=== PATIENT | male | born 1980 | race Two or more races ===

== ENCOUNTER 2022-10-13 15:49 | Emergency (ER) | payer OTHER, SELFPAY | END 2022-10-13 18:53 | disposition left against medical advice (07) | PROVIDERS: Emergency Provider Emergency Medicine | DX: Z04.1 Encounter for examination and observation following transport accident (principal) ==

== ENCOUNTER 2024-12-03 22:24 | Emergency (ER) | payer OTHER, SELFPAY ==
--- NOTE | ~2024-12-03 | XR_ITS ---
CLINICAL HISTORY: laceration palm from glass, ?FB 3 view left hand Comparison: None Findings: Multifocal osteoarthritis, including imaged wrist. Likely accessory ossicle of the base of the 1st proximal phalanx. No dislocation. Calcific densities likely due to small old avulsion fragment of the ventral aspect of the base of the distal phalanx of the thumb. Soft tissue swelling and defect in the 1st webspace with soft tissue swelling, including thenar region. No radiopaque retained foreign body in the [id number]. IMPRESSION: 1. Soft tissue defect including 1st webspace. 2. Soft tissue swelling including thenar region. 3. Multifocal osteoarthritis, including imaged wrist. This document has been electronically signed by: Omkar Padron MD on 12/04/2024 02:04:11
[2024-12-03 23:12] VITALS: BP 159/109; PULSE 90; RESP 18; TEMP 36.8; O2SAT 97; BMI 30.7
--- OUTSIDE RECORDS SUMMARY | 2024-12-04 01:03 | XMS_ITS | Clinical Summary ---
Author Organization [facility] Address [address] [place] [address] Care Team Providers Care Building Certifier Name Role Phone Sapphire Del Angel PA-C Primary Care Provider [phone] Source Comments PLEASE NOTE, if this patient is a minor, it may be UNLAWFUL to discuss sensitive information that is contained in these records (such as FAMILY PLANNING, MENTAL HEALTH or SUBSTANCE ABUSE) with the minor patient's parent or other person without the patient's specific authorization.[facility] Allergies No known active allergies Medications miscellaneous medical supply miscIndications:Lo calized swelling of both lower legs by miscellaneous route once daily DX: bilateral leg swelling Length of need: lifetime Supply: 1 pair of 15-20 mm Hg compression stockings 2 Each 05/27/20 21 Active blood-glucose meter (FREESTYLE LITE METER) monitoring kitIndications:New onset type 2 diabetes mellitus (HCC-CMS) as needed for blood glucose monitoring 1 Each 07/02/20 21 Active lancets (FREESTYLE LANCETS) 28 gaugeIndications:N ew onset type 2 diabetes mellitus (HCC-CMS) Daily to test BG 100 Each 07/02/20 21 Active blood sugar diagnostic (FREESTYLE TEST) stripsIndications: New onset type 2 diabetes mellitus (HCC-CMS) 1 Each once daily 100 Each 2 07/02/20 21 Active fluticasone propionate (FLOVENT HFA) 110 mcg/actuation inhalerIndications :Wheezing Inhale 1 Puff into the lungs 2 (two) times daily 12 g 2 11/05/19 22 Active albuterol sulfate 90 mcg/actuation inhalerIndications :Dyspnea on exertion Inhale 2 Puffs into the lungs every 4 (four) hours as needed for shortness of breath or wheezing 18 g 2 11/05/19 22 Active hydroCHLOROthiazid e (HYDRODIURIL) 25 mg tabletIndications: Essential hypertension Take 1 Tablet by mouth once daily 90 Tablet 1 02/24/20 22 Active testosterone (ANDROGEL) 1 % (50 mg/5 gram) gelIndications:Hyp ogonadism in male Place 50 mg onto the skin once daily 5 g 02/24/20 22 Active lisinopriL 20 mg tabletIndications: Essential hypertension Take 1 Tablet by mouth once daily for blood pressure 90 Tablet 1 02/24/20 22 Active metFORMIN (GLUCOPHAGE) 1,000 mg tabletIndications: Controlled type 2 diabetes mellitus without complication, without long-term current use of insulin ([facility]) Take 1 Tablet by mouth 2 (two) times daily with a meal 60 Tablet 2 02/24/20 22 Active atorvastatin (LIPITOR) 20 mg tabletIndications: Mixed hyperlipidemia Take 1 Tablet by mouth once daily 90 Tablet 02/24/20 22 Active Active Problems Problem Noted Date Diagnosed Date Rib fracture 03/16/2018 Overview (03/16/2018): [facility] Diagnostic Imaging Department 03/13/2018 Right 10th and 11th rib fractures. No radiologically evident pneumothorax. Umbilical hernia 03/12/2017 Hx of drug abuse ([facility]) 10/27/2016 Overview (10/27/2016): Currently on suboxone daily. [facility]es to [facility]. Sees a therapist as well. Deviated nasal septum 10/27/2016 Essential hypertension 12/19/2015 Hypercholesteremia 12/19/2015 Low back pain 12/19/2015 Morbid obesity due to excess calories ([facility]) 12/19/2015 Resolved Problems Problem Noted Date Diagnosed Date Resolved Date Bilateral leg numbness 12/19/201510/27 Encounters Date Type Department Care Team Description 09/11/2024 Telemedicine Visit [address] [address] [place] Alcaraz PA Bilateral inguinal hernia without obstruction or gangrene, recurrence not specified (Primary Dx) from Last 3 Months Immunizations Name Administration Dates Next Due INFLUENZA, SEASONAL, INJECTA BLE, PRESERVATIVE FREE 10/27/2016 PFIZER COVID VACCINE, PURPLE CAP, 12+ ,01/17/2021,12/27/2020,2020 TDAP 02/05/2016 Family History Relation Name Status Comments Father Alive Mother Alive Social History Tobacco Use Types Packs/Day Years Used Date Smoking Tobacco: Never Smokeless Tobacco: Never Tobacco Cessation:Counseling Given: No Alcohol Use Standard Drinks/Week Comments Yes 0 (1 standard drink = 0.6 oz pur e alcohol) occassionaly Social Connections Answer Date Recorded Connectedness 0 11/05/2021 Financial Resource Strain Answer Date R ecorded Financial Resource Strain 0 2021 Stress Answer Date Recorded Stress 0 11/05/2021 Physical Activity Answer Date Recorded Physical Activity 0 06/24/2019 Food Insecurity Answer Date Recorded Food 0 11/05/2021 Transportation Needs Answer Date Record ed Transportation 0 11/05/2021 Housing Stability Answer Date Recorded Housing 0 11/05/2021 Safety and Environment Answer Date Robert rded Safety 0 11/05/2021 Utilities Answer Date Recorded Utilities 0 11/05/2021 Employment Answer Date Recorded Employment 0 06/24/2019 Sex and Gender Information Value Date Recorded Sex Assigned at Male 02/15/2019 1:27 PM PDT Legal Sex Male 1:23 PM PST Gender Identity Male 02/15/2019 1:27 PM PDT Sexual Orientation Straight 02/15/2019 1: 27 PM PDT Occupation Industry Job Start Date Job End Date Not on file Not on file Not on file Not on file Last Filed Vital Signs Vital Sign Reading Time Taken Comments Blood Pressure 181/160 02/23/2022 3:39 PM EDT Pulse 104 02/23/2022 3:39 PM EDT Temperature 36.3 ??C (97.3 ??F) 02/23/2022 3:39 PM ED T Respiratory Rate 16 02/23/2022 3:39 PM EDT Oxygen Saturation 97% 05/27/2021 3:30 PM EDT Inhaled Oxygen Concentration - - Weight 117.5 kg (259 lb) 02/23/2022 3:39 PM EDT Height 167.6 cm (5' 6 ) 11/19/2021 3:23 PM EST Body Mass Index 41.8 11/19/2021 3:23 PM EST Plan of Treatment Health Maintenance Due Date Last Done Comments Dental Examination 1979 Tobacco Screening 1979 Syphilis Screening 02/07/1993 Imm-Hepatitis B (1 of 3 - 19 + 3-dose series) 1998 Annual Preventive Care Visit 02/04/2017 02/05/2016 Lipid Screening 02/23/2023 02/23/2022, 01/30, 11/05/2021, Additional history exists CT Colonography 02/07/2024 Colonoscopy 02/07/2024 Colorectal Cancer Screening 02/07/2024 FIT/gFOBT 02/07/2024 Fecal DNA 02/07/2024 Flexible Sigmoidoscopy 02/07/2024 [id number] () 07/01/2024 01/17/2021, 01/17/2021, 12/27/2020, Additional history exists Imm-Influenza (#1) 2024 10/27/2016 Alcohol and Drug Screen 10/31/2024 11/05/19, 04/10/2021, 02/13/2019, Additional history exists Depression Annual Screen 10/31/2024 11/05/2021, 12/01 Diabetes Screening 02/23/2025 02/23/2022, 0 02/23/2022, 11/05/2021, Additional history exists Imm-DTaP/Tdap/Td (2 - Td or Tdap) 02/04/2026 016 HIV Screening Completed 05/29/2021, 05/29/2021 Hepatitis C Screening Completed 05/29/2021 Goals Goal Patient Goal Type Associated Problems Recent Progress Patient-Stated? Author Blood Pressure < 140/90 Blood Pressure Essential hypertension 181/160(02/23 3:39 PM EDT) No Clemente Cheney, PharmD Procedures Procedure Name Priority Date/Time Associated Diagnosis Comments COMPREHENSIVE METABOLIC PANEL Routine 02/23/2022 4:14 PM EDT Essential hypertension LIPID PANEL Routine 02/23/2022 4:14 PM EDT Mixed hyperlipidemia HIV 1/2 AG & AB W/RFLX (4TH GEN) Routine 05/29/2021 9:38 AM EDT Encounter for screening for HIV ACUTE HEPATITIS PANEL W/RFLX Routine 05/29/2021 9:38 AM EDT Need for hepatitis C screening test from Last 3 Months or Most Recently Relevant to Health Maintenance Results * (ABNORMAL) LIPID PANEL (02/23/2022 4:14 PM EDT) CHOLESTEROL, TOTAL 196 <200 mg/dL [facility] HDL CHOLESTEROL 45 > OR = 40 mg/dL [facility] TRIGLYCERIDES 137 <150 mg/dL [facility] LDL-CHOLESTEROL 126(H) 99 mg/dL (calc) [facility] Comment: Reference range: <100 Desirable range <100 mg/dL for primary prevention; ?? <70 mg/dL for patients with CHD or diabetic patients with > or = 2 CHD risk factors. LDL-C is now calculated using the Alonso calculation, which is a validated novel method providing better accuracy than the Friedewald equation in the estimation of LDL-C. Bill FRANKEL et al. LARRY. 2013;310(19): 4796-3306 (http://education.Medprivé/faq/IKI985) CHOL/HDLC RATIO 4.4 <5.0 (calc) [facility] NON-HDL CHOLESTEROL 151(H) <130 mg/dL (calc) [facility] Comment: For patients with diabetes plus 1 major ASCVD risk factor, treating to a non-HDL-C goal of <100 mg/dL (LDL-C of <70 mg/dL) is considered a therapeutic option. Blood Blood / Unknown 02/23/2022 4 :14 PM EDT 02/23/2022 4:15 PM EDT Narrative [employer] - 02/24/2022 4:27 AM EDT FASTING:NO us Godwin Mcbride PA-C LAB - BLOOD DRAW Final Result [facility] [address] [address], [facility] [address] [address] * COMPREHENSIVE METABOLIC PANEL (02/23/2022 4:14 PM EDT) GLUCOSE 90 65 - 139 mg/dL [facility] Comment: ?Non-fasting reference interval UREA NITROGEN (BUN) 13 7 - 25 mg/dL [facility] CREATININE (blood) 1.00 0.60 - 1.35 mg/dL [facility] GFR ESTIMATED 92 > OR = 60 mL/min/1 .73m2 [facility] EGFR 106 > OR = 60 mL/min/1 .73m2 [facility] BUN/CREATININE RATIO NOT APPLICABLE 6 - 22 [facility] SODIUM 140 135 - 146 mmol/L [facility] POTASSIUM 4.3 3.5 - 5.3 mmol/L [facility] CHLORIDE 102 98 - 110 mmol/L [facility] CARBON DIOXIDE 32 20 - 32 mmol/L [facility] CALCIUM 9.7 8.6 - 10.3 mg/dL [facility] PROTEIN, TOTAL 7.2 6.1 - 8.1 g/dL [facility] ALBUMIN 4.3 3.6 - 5.1 g/dL [facility] GLOBULIN 2.9 1.9 - 3.7 g/dL (calc) [facility] ALBUMIN/GLOBUL IN RATIO 1.5 1.0 - 2.5 (calc) [facility] BILIRUBIN, TOTAL 0.5 0.2 - 1.2 mg/dL [facility] ALKALINE PHOSPHATASE 69 36 - 130 U/L [facility] AST 22 10 - 40 U/L [facility] ALT 23 9 - 46 U/L [facility] Blood Blood / Unknown 02/23/2022 4 :14 PM EDT 02/23/2022 4:15 PM EDT Narrative [facility] - 02/24/2022 4:27 AM EDT FASTING:NO us Godwin Mcbride PA-C LAB - BLOOD DRAW Edited Resul t - Final [employer] [facility] [address] [address], [facility] [address] [address] * HIV 1/2 AG & AB W/RFLX (4TH GEN) (05/29/2021 9:38 AM EDT) HIV AG/AB, 4TH GEN NON-REAC TIVE NON-REAC TIVE [facility] Comment: HIV-1 antigen and HIV-1/HIV-2 antibodies were not detected. There is no laboratory evidence of HIV infection. PLEASE NOTE: This information has been disclosed to you from records whose confidentiality may be protected by state law. ??If your state requires such protection, then the state law prohibits you from making any further disclosure of the information without the specific written consent of the person to whom it pertains, or as otherwise permitted by law. A general authorization for the release of medical or other information is NOT sufficient for this purpose. ?? For additional information please refer to http://education.Cashually/faq/NXV837 (This link is being provided for informational/ educational purposes only.) The performance of this assay has not been clinically validated in patients less than 2 years old. Blood Blood / Unknown 05/29/2021 9 :38 AM EDT 05/29/2021 9:38 AM EDT us Sapphire Del Angel PA-C LAB - BLOOD DRAW Final Resul t [employer] [address] [address], [facility] [address] [address] * ACUTE HEPATITIS PANEL W/RFLX (05/29/2021 9:38 AM EDT) HEPATITIS A IGM ANTIBODY NON-REACT FLAKO NON-REACT FLAKO [facility] COMMENT [facility] HEPATITIS B SURFACE ANTIGEN NON-REACT FLAKO NON-REACT FLAKO [facility] HEPATITIS B CORE IGM ANTIBODY NON-REACT FLAKO NON-REACT FLAKO [facility] HEPATITIS C ANTIBODY NON-REACT FLAKO NON-REACT FLAKO [facility] SIGNAL TO CUT-OFF 0.01 <1.00 [facility] Comment: HCV antibody was non-reactive. There is no laboratory evidence of HCV infection. In most cases, no further action is required. However, if recent HCV exposure is suspected, a test for HCV RNA (test code 08938) is suggested. For additional information please refer to http://[employer]Cashually/faq/DON75k1 (This link is being provided for informational/ educational purposes only.) Blood Blood / Unknown 05/29/2021 9 :38 AM EDT 05/29/2021 9:38 AM EDT Narrative [facility] - 05/29/2021 10:08 PM EDT For additional information, please refer to http://[employer]Cashually/faq/GIF988 (This link is being provided for informational/ educational purposes only.) us Sapphire Del Angel PA-C LAB - BLOOD DRAW Final Resul t [facility] [address] [address], [facility] [address] [address] from Last 3 Months or Most Recently Relevant to Health Maintenance Insurance [facility] Member Subscriber Plan / Payer (Ef fective 2023-Present) Name:Hemanth Gates Relation to Subscriber:Self Name:Hemanth Gates Payer ID:[id number] Group ID:Not on file Type:Medicaid Address: [address] [id number] Care Teams Building Certifier Relationship Specialty Start Date End Date Sapphire Del Angel PA-C [address] [place] [address] PCP - General FAMILY MEDICINESELINA 09/24/20
--- OUTSIDE RECORDS SUMMARY | 2024-12-04 01:03 | XMS_ITS | Encounter Summary ---
Author Organization [facility] Address [address] [place] [address] Care Team Providers Care Service Observer Chief Name Role Phone Sapphire Del Angel Primary Care Provider [phone] Reason for Visit * Reason Comments Hernia Encounter Details Date Type Department Care Team ([facility] Contact Info) Description 11/06/2024 10:30 AM EST Consult General Surgery - [place] 175 [facility] [address] [place] [phone] Yas Mcnally, DO 175 [facility] [address] [place] [address] Left inguinal hernia (Primary Dx) Social History Tobacco Use Types Packs/Day Years Used Date Smoking Tobacco: Never Assessed Sex and Gender Information Value Date Recorded Sex Assigned at Male 09/06/2024 11:29 AM EST Gender Identity Male 09/06/2024 11:29 AM EST Sexual Orientation Straight 09/06/2024 11 :29 AM EST Job Start Date Occupation Industry Not on file Not on file Not on file documented as of this encounter Last Filed Vital Signs Vital Sign Reading Time Taken Comments Blood Pressure 171/109 11/06/2024 10:40 AM EST Pulse 65 11/06/2024 10:40 AM EST Temperature - - Respiratory Rate - - Oxygen Saturation - - Inhaled Oxygen Concentration - - Weight 92.6 kg (204 lb 3.2 oz) 11/06/2024 10:40 AM EST Height 172.7 cm (5' 8 ) 11/06/2024 10:40 AM EST Body Mass Index 31.05 11/06/2024 10:40 AM EST documented in this encounter Functional Status Functional Status Response Date of Assess ment Are you deaf or do you have serious difficulty h earing? No 09/06/2024 Are you blind or do you have serious difficulty seeing, even when wearing glasses? No 09/06/2024 Do you have serious difficul ty walking or climbing stairs? No 09/06/2024 Do you have serious difficulty dressing or bathi ng? No 09/06/2024 Because of a physical, menta l, or emotional condition, do you have serious difficulty doing errands alone such as visiting the doctor? No 09/06/2024 Cognitive Status Response Date of Assessm ent Because of a physical, menta l, or emotional condition, do you have serious difficulty concentrating, remembering, or making decisions? (5 years old or older) No 09/06/2024 documented as of this encounter Progress Notes * Yas Mcnally DO - 11/06/2024 10:30 AM ESTAddended by: YAS MCNALLY on: 11/07/2024 09:46 AM Modules accepted: Orders * Yas Mcnally DO - 11/06/2024 10:30 AM EST Images from the original note were not included. REFERRING PROVIDER: Emergency department REASON FOR VISIT: Left possible right inguinal hernia HPI: This is a very pleasant 44 y.o.-year-old male past medical history significant for umbilical hernia, history of morbid obesity, history of hypertension, history of open right inguinal hernia repair x2 who presents for consultation regarding left groin pain and bulging. The patient was seen in the emergency department at [facility] on 09/06/[address] abdomen pelvis which shows a left inguinal hernia and possibly a right inguinal hernia. These were not called out by the radiologist impression but are my own interpretation of the study. Patient denies any tobacco abuse. He is a nondiabetic. He is not on any anticoagulation. He is never had any heart or lung problems. ROS The following symptom list was reviewed with the patient: GENERAL: fevers, chills, sweats, change in weight, fatigue or malaise HEENT: changes in hearing or vision, nasal problems NECK: lumps, goiter, or significant neck swelling RESPIRATORY: cough, wheezing, shortness of breath, pleuritic chest pain CARDIOVASCULAR: chest pain, leg swelling or palpitations GI: abdominal discomfort, blood in stools or black stools : dysuria, frequency or incontinence MUSCULOSKELETAL: joint pain or swelling, back pain, or muscle pain SKIN: lesions, rash or itching PSYCH: sleep disturbance or depression HEMATOLOGY: prolonged bleeding, easy bruisability or swollen nodes ENDOCRINE: cold or heat intolerance, polyuria, polydipsia or goiter NEURO: persistent headache, syncope, seizures, weakness or numbness The patient reported the following as positive: As per HPI; left inguinal hernia PAST MEDICAL HISTORY: I personally reviewed the following past medical history with the patient and updated the records as appropriate. There are no problems to display for this patient. PAST SURGICAL HISTORY: I personally reviewed the following past surgical history with the patient and updated the records as appropriate. Past Surgical History: Procedure Laterality Date HERNIA REPAIR SOCIAL HISTORY: I personally reviewed the following social history with the patient and updated the records as appropriate. Social History Tobacco Use Smoking status: Not on file Smokeless tobacco: Not on file Substance Use Topics Alcohol use: Not on file FAMILY HISTORY: I personally reviewed the following family medical history with the patient and updated the recordsas appropriate. No family history on file. ACTIVE MEDICATIONS: Medication list was reviewed/updated with the patient. No outpatient medications have been marked as taking for the 11/06/24 encounter (Consult) with Florin Mcnally DO. ALLERGIES: No Known Allergies PHYSICAL EXAM: Visit Vitals BP (!) 171/109 Pulse 65 Ht 1.727 m (68 ) Wt 92.6 kg (204 lb 3.2 oz) BMI 31.05 kg/m?? BSA 2.06 m?? GENERAL: Awake, alert, and in no acute distress. HEAD: Normocephalic, atraumatic. EYES: Pupils equal and round. Anicteric sclera. Conjunctiva normal. NECK: Thyroid midline and without goiter, nodule, tenderness, or mass. No appreciable adenopathy. CHEST: Non-tender. LUNGS: Clear to auscultation bilaterally without wheezing, rales, or rhonchi. CARDIAC: RRR, normal S1/S2, no appreciable murmur. ABDOMEN: Soft, non-tender, non-distended. No appreciable mass. No organomegaly. No ventral or umbilical hernia noted. : Penis without notable lesion. Scrotum grossly normal. With Valsalva the left inguinal hernia ispalpable and possibly a small right inguinal hernia as well which would be recurrent. LYMPH NODES: Cervical and supraclavicular lymph nodes without adenopathy. BACK: Grossly normal range of motion. SKIN: Warm, no lesion or rash noted on visible skin. NEURO: Alert and oriented, appropriate. Motor and sensory grossly intact. LABS: No pertinent labs. IMAGING: The following images were personally reviewed, including reports and associated films. Findings were discussed with the patient. Narrative & Impression EXAMINATION: CT abdomen and pelvis without contrast. CLINICAL INDICATION: Left groin pain and left flank and back pain. COMPARISON: None. TECHNIQUE: 2.5 mm thin axial and reformatted 3 mm thin sagittal and coronal images of abdomen and pelvis were obtained. Scanner: Weekdone 64 slice VCT Dose reduction technique: ASIR (Adaptive statistical iterative reconstruction) and/or AEC (automated exposure control) Dose: total exam DLP 1246 mGy/cm FINDINGS: Lung bases: The lung bases are clear. The heart size is normal. Mild coronary artery calcificationsare present. No pericardial or pleural effusion seen Liver, ducts and gallbladder: The liver is normal size, contour and density. No focal lesion or intrahepatic ductal dilatation seen. The gallbladder is unremarkable. Pancreas: Unremarkable. Spleen: Unremarkable. Adrenal glands: Unremarkable. Kidneys and ureters: The kidneys are normal size, shape and position. No radiopaque renal calculi or hydronephrosis seen. Lymphovascular structures: Abdominal aorta is of normal caliber. No retroperitoneal lymph nodes aremass seen. GI tract: Moderate scattered stool is seen in colon without distention. The small bowel loops are normal caliber. Appendix is normal caliber. No free air or free fluid seen. Abdominal wall: Unremarkable. Pelvis: The bladder is nondistended. The prostate gland is normal size. No free fluid or abnormal lymphadenopathy seen. Osseous structures: There is grade 1 anterolisthesis L5 over S1. Mild degenerative disc changes with vacuum disc phenomena visualized at L4-5 and L5- S1 disc level. There are bilateral L5 pars defect with bridging L4-5 osteophyte or annular calcification. IMPRESSION: Mild constipation. ................................................................................ ............................................................. ASSESSMENT & PLAN: Left possible right inguinal hernia Patient does have a left inguinal hernia on CT as well as on my examination. He may also have a contralateral inguinal hernia on the right side. I explained robotic assisted left possible right inguinal hernia with mesh. Explained procedure in detail including the risk procedure which include bleeding, infection, damage from structures need for the procedures he understands these risks wished to move forward with surgery It was a pleasure seeing Hemanth Gates at [facility] today. The patient has been instructedto call with any additional questions or concerns. Thank you for this referral. Dr. Yas Mcnally DO [facility] A Member of [facility] W [phone] F [phone] [place] [phone] [email or web address] No ref. provider found documented in this encounter Plan of Treatment Upcoming Encounters Date Type Department Care Team (Latest Contact Info) Description 12/07/2024 9:30 AM EST Hospital Encounter [facility] OR [address] [place] [phone] Yas Mcnally DO [address] [place] [id number] 12/07/2024 9:30 AM EST - 12/07/2024 12:00 PM EST Surgery [facility] OR [address] [place] [phone] Yas Mcnally DO [address] [address] davinci repair left inguinal hernia,? right w/mesh [89905 (CPT??)] 12/24/2024 10:30 AM EST Office Visit General Surgery [facility] [address] [phone] Yas Mcnally, DO [address] [address] Scheduled Procedures Name Priority Associated Diagnoses Date/Ti me REPAIR HERNIA INGUINAL ROBOT Left inguinal hernia 12/07/2024 9:30 AM EST documented as of this encounter Visit Diagnoses Diagnosis Left inguinal hernia- Primary Inguinal hernia without mention of obstruction or gangrene, unilateral or unspecified, (not specified as recurrent) Left inguinal hernia Inguinal hernia without mention of obstruction or gangrene, unilateral or unspecified, (not specified as recurrent) documented in this encounter Orders Case Request Count Last Ordered Date First Orde red Date CASE REQUEST OPERATING ROOM 1 11/07/2024 documented in this encounter Care Teams Service Observer Chief Relationship Specialty Start Date End Date Sapphire Del Angel PA [address] [place] [address] PCP - General 09/17/24 documented as of this encounter
--- OUTSIDE RECORDS SUMMARY | 2024-12-04 01:03 | XMS_ITS | Encounter Summary ---
Author Organization [facility] Address [address] [place] [address] Care Team Providers Care Variety Performer Name Role Phone Del AngelKamronsavanna SELINA Primary Care Provider [phone] Reason for Visit * Reason Onset Date Comments Prior Authorization 11/30/2024 12/07/24 Dr. Ran Gerard Encounter Details Date Type Department Care Team ([facility] Contact Info) Description 11/30/2024 Telephone General Surgery - [place] [address] [facility] [address] [place] [phone] Rohan Gerard, [address] [facility] [address] [place] [address] Prior Authorization (12/07/24 Dr. Rohan Gerard) Social History Tobacco Use Types Packs/Day Years Used Date Smoking Tobacco: Never Assessed Sex and Gender Information Value Date Recorded Sex Assigned at Male 09/06/2024 11:29 AM EST Gender Identity Male 09/06/2024 11:29 AM EST Sexual Orientation Straight 09/06/2024 11 :29 AM EST Job Start Date Occupation Industry Not on file Not on file Not on file documented as of this encounter Functional Status Functional Status Response [...] as of this encounter Progress Notes * Radha Wisdom - 11/30/2024 10:57 AM EST He is having surgery with Dr. Gerard at [facility] on 12/07/24. He has [facility] for insurance. I went online and No authorization required for CPT code 77595. documented in this encounter Plan of Treatment Upcoming Encounters Date Type Department Care Team (Latest Contact Info) Description 12/07/2024 9:30 AM EST Hospital Encounter [facility] OR [address] [place] [phone] Rohan Gerard, DO [address] [address] 12/07/2024 9:30 AM EST - 12/07/2024 12:00 PM EST Surgery [facility] OR [address] [place] [phone] Rohan Gerard, DO [address] [address] davinci repair left inguinal hernia,? right w/mesh [60132 (CPT??)] 12/24/2024 10:30 AM EST Office Visit General Surgery - [place] [address] [phone] Rohan Gerard, DO [address] [address] Scheduled Procedures Name Priority Associated Diagnoses Date/Ti id REPAIR HERNIA INGUINAL ROBOT Left inguinal hernia 12/07/2024 9:30 AM EST documented as of this encounter Visit Diagnoses Not on filedocumented in this encounter Care Teams Variety Performer Relationship Specialty Start Date End Date Sapphire Del Angel PA [address] [place] [address] PCP - General 09/17/24 documented as of this encounter
--- OUTSIDE RECORDS SUMMARY | 2024-12-04 01:03 | XMS_ITS | Clinical Summary ---
Author Organization [facility] Address [address] [place] [address] Phone Care Team Providers Care Internal Combustion Engineer Name Role Phone Sapphire Del Angel Primary Care Provider [phone] Allergies No known active allergies Medications Medication Sig Dispensed Refills Start Date End Date Status hydroCHLOROthiazide (HYDRODIURIL) 25 mg tablet Take 1 tablet (25 mg total) by mouth 1 (one) time each day. 02/23/2022 Active atorvastatin (LIPITOR) 20 mg tablet Take 1 tablet (20 mg total) by mouth daily. 02/23/2022 Active Active Problems Problem Noted Date Diagnosed Date Left inguinal hernia 11/06/2024 Encounters Date Type Department Care Team Description 11/30/2024 Telephone General Surgery [address] [phone] Rohan Gerard DO Prior Authorization (12/07/24 Dr. Rohan Gerard) 11/06/2024 10:30 AM EST Consult General Surgery [address] [phone] Rohan Gerard DO Left inguinal hernia (Primary Dx) 09/09/2024 10:45 PM EST - 09/10/2024 2:57 AM EST Emergency [facility] Emergency [address] [place] [phone] Discharge Disposition: Left Against Medical Advice 09/07/2024 12:01 AM EST - 09/07/2024 12:32 AM EST Emergency [facility] Emergency [address] [place] [phone] Discharge Disposition: Home or Self Care 09/06/2024 9:48 AM EST - 09/06/2024 12:00 PM EST Emergency [facility] [address] [place] [phone] Bhargav Salcido DO Left groin pain (Primary Dx) Discharge Disposition: Left Against Medical Advice from Last 3 Months Immunizations Name Administration Dates Next Due Pfizer SARS-CoV-2 COVID-19, mRNA, LNP-S, preservative free 01/17/2021,12/27/2020 Surgical History Surgery Date Site/Laterality Comments HERNIA REPAIR Medical History Medical History Date Comments Hypertension Hernia of abdominal wall Sleep apnea Substance abuse (CMS/HCC) histor y Social History Tobacco Use Types Packs/Day Years Used Date Smoking Tobacco: Never Assessed Sex and Gender Information Value Date Recorded Sex Assigned at Male 09/06/2024 11:29 AM EST Gender Identity Male 09/06/2024 11:29 AM EST Sexual Orientation Straight 09/06/2024 11 :29 AM EST Job Start Date Occupation Industry Not on file Not on file Not on file Obstetrics History Last Filed Vital Signs Vital Sign Reading Time Taken Comments Blood Pressure 171/109 11/06/2024 10:40 AM EST Pulse 65 11/06/2024 10:40 AM EST Temperature 36.9 ??C (98.4 ??F) 09/10/2024 1:04 AM ES T Respiratory Rate 18 09/10/2024 1:04 AM EST Oxygen Saturation 99% 09/10/2024 1:04 AM EST Inhaled Oxygen Concentration - - Weight 92.6 kg (204 lb 3.2 oz) 11/06/2024 10:40 AM EST Height 172.7 cm (5' 8 ) 11/06/2024 10:40 AM EST Body Mass Index 31.05 11/06/2024 10:40 AM EST Plan of Treatment Upcoming Encounters Date Type Department Care Team (Latest Contact Info) Description 12/07/2024 9:30 AM EST Hospital Encounter [facility] Main OR [address] [place] [phone] Rohan Gerard, [address] [address] 12/07/2024 9:30 AM EST - 12/07/2024 12:00 PM EST Surgery [facility] Main OR [address] [place] [phone] Rohan Gerard, DO [address] [address] davinci repair left inguinal hernia,? right w/mesh [02043 (CPT??)] 12/24/2024 10:30 AM EST Office Visit General Surgery - [place] [address] [phone] Rohan Gerard, DO [address] [address] Scheduled Procedures Name Priority Associated Diagnoses Date/Ti me REPAIR HERNIA INGUINAL ROBOT Left inguinal hernia 12/07/2024 9:30 AM EST Health Maintenance Due Date Last Done Comments Hepatitis B Vaccines (1 of 3 - 19+ 3-dose series) 1998 Colorectal Cancer Screening: Colonoscopy 09/28/2022 Depression Screening 09/28/2022 Social Influencers of Health Screening 09/28/2022 COVID-19 Vaccine ( season) 2024 01/17/2021, 12/27/2020 Influenza Vaccine (#1) 2024 10/27/2016 Hypertension/CHF/CAD Annual BMP Blood Test 09/10/2025 09/10/2024, 09/06/2024, 02/23/2022, Additional history exists DTaP,Tdap,and Td Vaccines (2 - Td or Tdap) 02/04/2026 02/05/2016 Cholesterol Screening (Lipid Panel) 02/23/2027 02/23/2022, 02/23/2022, 02/23/2022, Additional history exists HIV Screening Completed 05/29/2021 Hepatitis C Screening Completed 05/29/2021, 021 HIB Vaccines Aged Out No longer eligi ble based on patient's age to complete this topic HPV Vaccines Aged Out No longer eligi ble based on patient's age to complete this topic Hepatitis A Vaccines Aged Out No long er eligible based on patient's age to complete this topic IPV Vaccines Aged Out No longer eligi ble based on patient's age to complete this topic MMR Vaccines Aged Out No longer eligi ble based on patient's age to complete this topic Meningococcal ACWY Vaccine Aged Out N o longer eligible based on patient's age to complete this topic Pneumococcal Vaccine: Pediatrics (0 to 5 Years) and At-Risk Patients (6 to 64 Years) Aged Out No longer eligible based on patient's age to complete this topic RSV Immunization Patients Under 20 months Aged Out No longer eligible based on patient's age to complete this topic Varicella Vaccines Aged Out No longer eligible based on patient's age to complete this topic Procedures Procedure Name Priority Date/Time Associated Diagnosis Comments CBC WITH AUTO DIFFERENTIAL STAT 09/10/2024 1:14 AM EST COMPREHENSIVE METABOLIC PANEL STAT 09/10/2024 1:14 AM EST CBC AND DIFFERENTIAL STAT 09/10/2024 1:[address] ABDOMEN PELVIS WO CONTRAST STAT 09/06/2024 12:19 PM EST SANCHEZ URINE CULTURE TUBE STAT 09/06/2024 10:57 AM EST URINALYSIS WITH REFLEX MICROSCOPIC AND CULTURE STAT 09/06/2024 10:57 AM EST CBC WITH AUTO DIFFERENTIAL STAT 09/06/2024 10:57 AM EST URINALYSIS WITH REFLEX MICROSCOPIC AND CULTURE STAT 09/06/2024 10:57 AM EST COMPREHENSIVE METABOLIC PANEL STAT 09/06/2024 10:57 AM EST CBC AND DIFFERENTIAL STAT 09/06/2024 10:57 AM EST US SCROTUM AND CONTENTS STAT 09/06/2024 10:41 AM EST LIPID PANEL Routine 02/23/2022 HEPATITIS C SCREENING Routine 05/29/2021 HIV SCREENING Routine 05/29/2021 from Last 3 Months or Most Recently Relevant to Health Maintenance Results * (ABNORMAL) CBC auto differential (09/10/2024 1:14 AM EST) Only the most recent of2 resultswithin the time period is included. Pathologist [facility] WBC 12.5(H) 4.8 - 10.8 K/mcL LAB HEMETOLOGY METHOD 09/10/2024 1:[address] [facility] RBC 4.30(L) 4.50 - 5.50 M/mcL LAB HEMETOLOGY METHOD 09/10/2024 1:[address] [facility] Hemoglobin 13.3(L) 13.5 - 17.5 g/dL LAB HEMETOLOGY METHOD 09/10/2024 1:[address] [facility] Hematocrit 36.5(L) 42.0 - 54.0 % LAB HEMETOLOGY METHOD 09/10/2024 1:[address] [facility] MCV 85.1 79.0 - 98.0 FL LAB HEMETOLOGY METHOD 09/10/2024 1:[address] [facility] MCH 31.0 27.0 - 32.0 pcg LAB HEMETOLOGY METHOD 09/10/2024 1:[address] [facility] MCHC 36.4 32.0 - 37.0 g/dL LAB HEMETOLOGY METHOD 09/10/2024 1:[address] [facility] RDW 13.6 11.0 - 15.0 % LAB HEMETOLOGY METHOD 09/10/2024 1:[address] [facility] Platelets 402(H) 130 - 400 K/mcL LAB HEMETOLOGY METHOD 09/10/2024 1:[address] [facility] MPV 8.7 7.0 - 11.0 FL LAB HEMETOLOGY METHOD 09/10/2024 1:[address] [facility] NRBC 0.0 <1.0 % LAB HEMETOLOGY METHOD 09/10/2024 1:[address] [facility] NRBC Absolute 0.00 <0.10 K/mcL LAB HEMETOLOGY METHOD 09/10/2024 1:[address] [facility] Neutrophils Relative 73.4 % LAB HEMETOLOGY METHOD 09/10/2024 1:[address] [facility] Lymphocytes Relative 19.0 % LAB HEMETOLOGY METHOD 09/10/2024 1:[address] [facility] Monocytes Relative 6.2 % LAB HEMETOLOGY METHOD 09/10/2024 1:[address] [facility] Eosinophils Relative 0.7 % LAB HEMETOLOGY METHOD 09/10/2024 1:[address] [facility] Basophils Relative 0.4 % LAB HEMETOLOGY METHOD 09/10/2024 1:[address] [facility] Immature Granulocytes Relative 0.3 % LAB HEMETOLOGY METHOD 09/10/2024 1:[address] [facility] Neutrophils Absolute 9.19(H) 1.50 - 7.00 K/mcL LAB HEMETOLOGY METHOD 09/10/2024 1:[address] [facility] Lymphocytes Absolute 2.38 1.00 - 5.00 K/mcL LAB HEMETOLOGY METHOD 09/10/2024 1:[address] [facility] Monocytes Absolute 0.77 0.20 - 1.00 K/mcL LAB HEMETOLOGY METHOD 09/10/2024 1:[address] [facility] Eosinophils Absolute 0.09 0.00 - 0.50 K/mcL LAB HEMETOLOGY METHOD 09/10/2024 1:[address] [facility] Basophils Absolute 0.05 0.00 - 0.20 K/mcL LAB HEMETOLOGY METHOD 09/10/2024 1:[address] [facility] Immature Granulocytes Absolute 0.04(H) 0.00 - 0.03 K/mcL LAB HEMETOLOGY METHOD 09/10/2024 1:[address] [facility] Blood Venous blood specimen / Unknown Venipuncture / Unknown 09/10/2024 1:14 AM EST 09/10/2024 1:25 AM EST Phuc Greco MD LAB BLOOD ORDERABLES [facility] [address] [place] [address], * Comprehensive metabolic panel (09/10/2024 1:14 AM EST) Only the most recent of2 resultswithin the time period is included. Sodium 143 133 - 145 mmol/L LAB CHEMISTRY METHOD 09/10/2024 1:[address] [facility] Potassium 3.8 3.5 - 5.5 mmol/L LAB CHEMISTRY METHOD 09/10/2024 1:[address] [facility] Chloride 109 96 - 110 mmol/L LAB CHEMISTRY METHOD 09/10/2024 1:[address] [facility] CO2 29 21 - 32 mmol/L LAB CHEMISTRY METHOD 09/10/2024 1:[address] [facility] Anion Gap 5 3 - 11 LAB CHEMISTRY METHOD 09/10/2024 1:[address] [facility] Glucose 92 70 - 100 mg/dL LAB CHEMISTRY METHOD 09/10/2024 1:[address] [facility] BUN 14 5 - 25 mg/dL LAB CHEMISTRY METHOD 09/10/2024 1:[address] [facility] Creatinine 0.81 0.70 - 1.30 mg/dL LAB CHEMISTRY METHOD 09/10/2024 1:[address] [facility] eGFR 111 >=60 mL/min/1. 73m2 LAB CHEMISTRY METHOD 09/10/2024 1:[address] [facility] Comment:Calculation based on the??Chronic Kidney Disease Epidemiology Collaboration (CKD-EPI) equation refit??without adjustment for race. BUN/Creatinine Ratio 17.3 LAB CHEMISTRY METHOD 09/10/2024 1:[address] [facility] Calcium 9.7 8.5 - 10.5 mg/dL LAB CHEMISTRY METHOD 09/10/2024 1:[address] [facility] AST (SGOT) 16 10 - 42 unit/L LAB CHEMISTRY METHOD 09/10/2024 1:[address] [facility] ALT (SGPT) 14 10 - 60 unit/L LAB CHEMISTRY METHOD 09/10/2024 1:[address] [facility] Alkaline Phosphatase 67 42 - 121 unit/L LAB CHEMISTRY METHOD 09/10/2024 1:[address] [facility] Total Protein 6.6 6.0 - 8.0 g/dL LAB CHEMISTRY METHOD 09/10/2024 1:[address] [facility] Albumin 3.6 3.2 - 5.0 g/dL LAB CHEMISTRY METHOD 09/10/2024 1:[address] [facility] Total Bilirubin 0.6 0.0 - 1.4 mg/dL LAB CHEMISTRY METHOD 09/10/2024 1:[address] [facility] Blood Venous blood specimen / Unknown Venipuncture / Unknown 09/10/2024 1:14 AM EST 09/10/2024 1:26 AM EST Scot Zbigniew Greco MD LAB BLOOD ORDERABLES [facility] [address] [place] [address], * CT Abdomen Pelvis wo Contrast (09/06/2024 12:19 PM EST) Anatomical Region Laterality Modality Body Computed Tomogra phy 09/06/2024 12:4 0 PM EST Impressions 09/06/2024 12:49 PM EST Mild constipation. No acute intra-abdominal process seen. -------- FINAL REPORT -------- Dictated By: Joel Bonds Dictated Date: 09/06/2024 12:40 ET Assigned Physician: Joel Bonds Reviewed and Electronically Signed By: Joel Bonds Signed Date: 09/06/2024 12:49 ET Workstation ID: [id number] Transcribed By: Self Edit Transcribed Date: 09/06/2024 12:40 ET Narrative 09/06/2024 12:49 PM EST EXAMINATION: CT abdomen and pelvis without contrast. CLINICAL INDICATION: Left groin pain and left flank and back pain. COMPARISON: None. TECHNIQUE: 2.5 mm thin axial and reformatted 3 mm thin sagittal and coronal images of abdomen and pelvis were obtained. Scanner: [employer] 64 slice VCT Dose reduction technique: ASIR (Adaptive statistical iterative reconstruction) and/or AEC (automated exposure control) Dose: total exam DLP 1246 mGy/cm FINDINGS: Lung bases: The lung bases are clear. The heart size is normal. Mild coronary artery calcifications are present. No pericardial or pleural effusion seen [...] of normal caliber. No retroperitoneal lymph nodes are mass seen. GI tract: Moderate scattered stool is [...] vacuum disc phenomena visualized at L4-5 and L5-S1 disc level. There are bilateral L5 pars defect with bridging L4-5 osteophyte or annular calcification. Procedure Note Joel Bonds MD - 09/06/2024 EXAMINATION: CT abdomen and pelvis without contrast. CLINICAL INDICATION: Left groin pain and left flank and back pain. COMPARISON: None. TECHNIQUE: 2.5 mm thin axial and reformatted 3 mm thin sagittal andcoronal images of abdomen and pelvis were obtained. Scanner: [id number] slice VCT Dose reduction technique: ASIR (Adaptive statistical iterativereconstruction) and/or AEC (automated exposure control) Dose: total exam DLP 1246 mGy/cm FINDINGS: Lung bases: The lung bases are clear. The heart size is normal. Mildcoronary artery calcifications are present. No pericardial or pleuraleffusion seen Liver, ducts and gallbladder: The liver is normal size, contour anddensity. No focal lesion or intrahepatic ductal dilatation seen. Thegallbladder is unremarkable. Pancreas: Unremarkable. Spleen: Unremarkable. Adrenal glands: Unremarkable. Kidneys and ureters: The kidneys are normal size, shape and position. Noradiopaque renal calculi or hydronephrosis seen. Lymphovascular structures: Abdominal aorta is of normal caliber. Noretroperitoneal lymph nodes are mass seen. GI tract: Moderate scattered stool is seen in colon without distention.The small bowel loops are normal caliber. Appendix is normal caliber. Nofree air or free fluid seen. Abdominal wall: Unremarkable. Pelvis: The bladder is nondistended. The prostate gland is normal size. Nofree fluid or abnormal lymphadenopathy seen. Osseous structures: There is grade 1 anterolisthesis L5 over S1. Milddegenerative disc changes with vacuum disc phenomena visualized at L4-5and L5-S1 disc level. There are bilateral L5 pars defect with bridgingL4-5 osteophyte or annular calcification. IMPRESSION: Mild constipation. No acute intra-abdominal process seen. -------- FINAL REPORT -------- Dictated By: Joel Bnods Dictated Date: 09/06/2024 12:40 ET Assigned Physician: Joel Bonds Reviewed and Electronically Signed By: Joel Bonds Signed Date: 09/06/2024 12:49 ET Workstation ID: [id number] Transcribed By: Self Edit Transcribed Date: 09/06/2024 12:40 ET Bhargav Salcido DO IMG CT PROCEDURES * (ABNORMAL) Urinalysis with reflex microscopic and culture (09/06/2024 10:57 AM EST) Specific [place] Urine 1.026 1.003 - 1.030 LAB URINALYSIS - AUTOMATED METHOD 09/06/2024 4:[address] [facility] pH, Urine 6.5 5.0 - 8.0 pH LAB URINALYSIS - AUTOMATED METHOD 09/06/2024 4:[address] [facility] Leukocytes, Urine Negative Negative LAB URINALYSIS - AUTOMATED METHOD 09/06/2024 4:[address] [facility] Nitrite, Urine Negative Negative LAB URINALYSIS - AUTOMATED METHOD 09/06/2024 4:[address] [facility] Protein, Urine 30(A) <=Trace mg/dL LAB URINALYSIS - AUTOMATED METHOD 09/06/2024 4:[address] [facility] Glucose, Urine 100(A) Negative mg/dL LAB URINALYSIS - AUTOMATED METHOD 09/06/2024 4:[address] [facility] Ketones, Urine Trace(A) Negative mg/dL LAB URINALYSIS - AUTOMATED METHOD 09/06/2024 4:[address] [facility] Urobilinogen , Urine 1.0 0.2 - 1.0 mg/dL LAB URINALYSIS - AUTOMATED METHOD 09/06/2024 4:[address] [facility] Bilirubin, Urine Negative Negative LAB URINALYSIS - AUTOMATED METHOD 09/06/2024 4:[address] [facility] Blood, Urine Trace(A) Negative LAB URINALYSIS - AUTOMATED METHOD 09/06/2024 4:[address] [facility] RBC, Urine 10.0(H) 0 - 4 /HPF LAB URINALYSIS - AUTOMATED METHOD 09/06/2024 4:[address] [facility] WBC, Urine 4.0 0 - 4 /HPF LAB URINALYSIS - AUTOMATED METHOD 09/06/2024 4:[address] [facility] Squamous Epithelial, Urine 10 0 - 60 /LPF LAB URINALYSIS - AUTOMATED METHOD 09/06/2024 4:[address] [facility] Non-Squamous Epithelial, Urine RARE TRANSITIONAL EPI /LPF LAB URINALYSIS - AUTOMATED METHOD 09/06/2024 4:[address] [facility] Crystals, Urine LT CALCIUM OXALATE /LPF LAB URINALYSIS - AUTOMATED METHOD 09/06/2024 4:[address] [facility] Bacteria, Urine Negative Negative /HPF LAB URINALYSIS - AUTOMATED METHOD 09/06/2024 4:[address] [facility] Hyaline Casts, Urine 10.0(H) 0 - 3 /LPF LAB URINALYSIS - AUTOMATED METHOD 09/06/2024 4:[address] [facility] Other Casts, Urine RARE FINE GRANULAR /LPF LAB URINALYSIS - AUTOMATED METHOD 09/06/2024 4:[address] [facility] Mucus, Urine Large None /HPF LAB URINALYSIS - AUTOMATED METHOD 09/06/2024 4:[address] [facility] Urine Urine specimen obtained by clean catch procedure / Unknown Non-blood Collection / Unknown 09/06/2024 10:57 AM EST 09/06/2024 3:04 PM EST Bhargav Salcido DO LAB URINE ORDERABLES [facility] [address] [place] [address], * Sanchez urine culture tube (09/06/2024 10:57 AM EST) Extra Tube Hold for add-ons. 09/06/2024 5:01 PM EST [facility] Comment:Auto resulted. Urine Urine specimen obtained by clean catch procedure / Unknown Non-blood Collection / Unknown 09/06/2024 10:57 AM EST 09/06/2024 3:04 PM EST Bhargav Jeansylvie DO LAB URINE ORDERABLES [facility] [address] [place] [address], * US Scrotum and Contents (09/06/2024 10:41 AM EST) Anatomical Region Laterality Modality Body Ultrasound 09/06/2024 11:0 8 AM EST Narrative 09/06/2024 11:34 AM EST INDICATION: Left scrotal pain and swelling. FINDINGS: Scrotal ultrasound obtained. No prior studies available for comparison. Right testicle is normal in size and shape. Mild heterogeneity with similar appearance on the contralateral side. No focal mass. Epididymis is within normal limits. There is normal vascularity. Left testicle is normal in size and shape. Mild heterogeneity with similar appearance on the contralateral side. No focal mass. ??Epididymis is within normal limits. Mildly increased vascularity suspected on the left side. There is no evidence of varicocele or hydrocele. Scrotal soft tissue swelling noted. CONCLUSION: Scrotal swelling with symmetric appearing testicles bilaterally. Consider epididymitis. -------- FINAL REPORT -------- Dictated By: Madhav Rasmussen Dictated Date: 09/06/2024 11:08 ET Assigned Physician: Madhav Rasmussen Reviewed and Electronically Signed By: Madhav Rasmussen Signed Date: 09/06/2024 11:34 ET Workstation ID: [id number] Transcribed By: Self Edit Transcribed Date: 09/06/2024 11:08 ET Procedure Note Madhav Rasmussen MD - 09/06/2024 INDICATION: Left scrotal pain and swelling. FINDINGS: Scrotal ultrasound obtained. No prior studies available forcomparison. Right testicle is normal in size and shape. Mild heterogeneity withsimilar appearance on the contralateral side. No focal mass. Epididymis iswithin normal limits. There is normal vascularity. Left testicle is normal in size and shape. Mild heterogeneity with similarappearance on the contralateral side. No focal mass. Epididymis is withinnormal limits. Mildly increased vascularity suspected on the left side. There is no evidence of varicocele or hydrocele. Scrotal soft tissue swelling noted. CONCLUSION: Scrotal swelling with symmetric appearing testicles bilaterally. Considerepididymitis. -------- FINAL REPORT -------- Dictated By: Madhav Rasmussen Dictated Date: 09/06/2024 11:08 ET Assigned Physician: Madhav Rasmussen Reviewed and Electronically Signed By: Madhav Rasmussen Signed Date: 09/06/2024 11:34 ET Workstation ID: [id number] Transcribed By: Self Edit Transcribed Date: 09/06/2024 11:08 ET Bhargav Salcido DO IMG US PROCEDURES * Lipid panel (02/23/2022) Pathologist [facility] Triglycerides 0 mg/dL Comment:no interpretation, a bstracted Cholesterol 0 mg/dL Comment:no interpretation, a bstracted HDL 0 mg/dL Comment:no interpretation, a bstracted LDL Cholesterol 0 mg/dL Comment:no interpretation, a bstracted Blood Venous blood specimen / Unknown Historical Provider LAB BLOOD ORDERAB LES * HIV Screening (05/29/2021) Pathologist [facility] HIV Screening abstracted Historical Provider MD MATHUR MAINTENJANINE E * Hepatitis C Screening (05/29/2021) [facility] Hepatitis C Screening abstracted Historical Provider HEALTH MAINTENANC E from Last 3 Months or Most Recently Relevant to Health Maintenance Care Teams Internal Combustion Engineer Relationship Specialty Start Date End Date Sapphire Del Angel PA [address] [place] [address] PCP - General 09/17/24
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
[2024-12-04] MEDS: Lidocaine HCl 1 % MPF 5 ML VIAL SUBCUT (01:27)
[2024-12-04] MEDS: Diphth,Pertus(ACell),Tet Adult 0.5 ML SYRINGE IM (01:28)
--- NOTE | 2024-12-04 01:31 | PC.NURSE ---
medicated per dec. xray taken, provider in there to assess pt.
--- NOTE | 2024-12-04 01:37 | PC.NURSE ---
wound sight being soaked and cleaned.
[2024-12-04 02:18] VITALS: BP 125/90; PULSE 90; RESP 20; TEMP 36.4; O2SAT 99
[2024-12-04 02:19] VITALS: BP 125/90; PULSE 90; RESP 20; TEMP 36.4; O2SAT 99
== END 2024-12-04 02:19 | disposition home or self-care (01) ==
PROVIDERS: Emergency Provider Emergency Medicine Emergency Medical Services; PCP Internal Medicine
DX: S61.412A Laceration without foreign body of left hand, initial encounter (principal); M79.642 Pain in left hand; W25.XXXA Contact with sharp glass, initial encounter; Y93.9 Activity, unspecified; Y92.009 Unspecified place in unspecified non-institutional (private) residence as the place of occurrence of the external cause; Y99.8 Other external cause status; Z23 Encounter for immunization
CPT/HCPCS: 12001; 73130; 90471; 90715; 99284; J2003

== ENCOUNTER → 2024-12-04 01:20 | Outpatient (BNV) | payer OTHER, SELFPAY | PROVIDERS: Emergency Provider Emergency Medicine Emergency Medical Services; PCP Internal Medicine; Visit Provider Radiology Neuroradiology | DX: S61.412A Laceration without foreign body of left hand, initial encounter (principal) | CPT/HCPCS: 73130 ==